=== PATIENT | male | born 1940 | race Caucasian/White ===

== ENCOUNTER → 2024-05-17 09:14 | Outpatient (REF) | payer MEDICARE, BC, SELFPAY | LOC: PAVMRI 09:14 | PROVIDERS: ATTENDING PHYSICIAN Specialist; FAMILY PHYSICIAN Family Medicine | DX: C61 Malignant neoplasm of prostate (principal) | CPT/HCPCS: 72197; A9575 ==

== ENCOUNTER → 2024-06-23 07:02 | Outpatient (REF) | payer MEDICARE, BC, SELFPAY ==
[2024-06-23 11:09] LABS: PSA, Total - Diagnostic 7.16 ng/ml (0.0-4.0)
== END ==
LOC: HWLAB 07:02
PROVIDERS: ATTENDING PHYSICIAN Specialist; FAMILY PHYSICIAN Family Medicine
DX: C61 Malignant neoplasm of prostate (principal)
CPT/HCPCS: 36415; 84153; 84403

== ENCOUNTER → 2024-11-16 07:28 | Outpatient (REF) | payer MEDICARE, BC, SELFPAY | LOC: HWRAD 07:28 | PROVIDERS: ATTENDING PHYSICIAN Family Medicine | DX: M25.511 Pain in right shoulder (principal) | CPT/HCPCS: 73030 ==

== ENCOUNTER → 2024-12-16 09:53 | Outpatient (REF) | payer MEDICARE, BC, SELFPAY | LOC: HWRCS 09:53 | PROVIDERS: ATTENDING PHYSICIAN Internal Medicine Cardiovascular Disease; FAMILY PHYSICIAN Family Medicine | DX: I25.10 Atherosclerotic heart disease of native coronary artery without angina pectoris (principal); I10 Essential (primary) hypertension; I77.810 Thoracic aortic ectasia; E78.2 Mixed hyperlipidemia | CPT/HCPCS: 93306 ==

== ENCOUNTER → 2024-12-19 09:22 | Outpatient (REF) | payer MEDICARE, BC, SELFPAY | LOC: PAVMRI 09:22 | PROVIDERS: ATTENDING PHYSICIAN Physician Assistant Surgical; FAMILY PHYSICIAN Family Medicine | DX: M25.511 Pain in right shoulder (principal) | CPT/HCPCS: 73221 ==

== ENCOUNTER → 2025-04-05 08:09 | Outpatient (REF) | payer MEDICARE, BC, SELFPAY ==
[2025-04-05 10:57] LABS: PSA, Total - Diagnostic 9.19 ng/ml (0.0-4.0)
== END ==
LOC: HWLAB 08:09
PROVIDERS: ATTENDING PHYSICIAN Specialist; FAMILY PHYSICIAN Family Medicine
DX: C61 Malignant neoplasm of prostate (principal)
CPT/HCPCS: 36415; 84153

== ENCOUNTER → 2025-10-24 09:39 | Outpatient (REF) | payer MEDICARE, BC, SELFPAY ==
[2025-10-24 12:03] LABS: PSA, Total - Diagnostic 10.30 ng/ml (0.0-4.0)
== END ==
LOC: REG 09:39
PROVIDERS: ATTENDING PHYSICIAN Specialist; FAMILY PHYSICIAN Family Medicine
DX: C61 Malignant neoplasm of prostate (principal)
CPT/HCPCS: 36415; 84153